=== PATIENT | male | born 1950 | race Caucasian/White ===

== ENCOUNTER 2017-06-11 16:55 | Emergency (ER) | payer OTHER ==
[~2017-06-11 16:55] MED LIST: PERCOCET 325 MG1 TA2 PO
--- NOTE | 2017-06-11 18:30 | ED ANKLE/FOOT INJURY COMPLAINT ---
History of Present Illness General Chief Complaint: Foot or Ankle Injury Stated Complaint: R ANKLE PAIN Source: patient Exam Limitations: no limitations Vital Signs & Intake/Output Vital Signs & Intake/Output Vital Signs Date Time Temp Pulse Resp B/P B/P Pulse O2 O2 Flow FiO2 Mean Ox Delivery Rate 06/11 185 98.4 56 20 146/78 95 Room Air 06/11 1851 99 Room Air 06/11 1708 98.6 66 20 138/83 97 Allergies Coded Allergies: NO KNOWN ALLERGIES (11/08/14) Reconcile Medications OXYCODONE HCL/ACETAMINOPHEN (Percocet 5-325 MG Tablet) 325 MG/5 MG TAB 1 TAB PO Q4-6 PRN PRN PAIN Triage Note: PER PT TWIATED RT ANKLE IN SNOW AT 1530 TODAY NO OTHER INJURIES Triage Nurses Notes Reviewed? yes Occurred: just prior to arrival Duration: hour(s):, constant, continues in ED Timing: recent history Method of Injury: twisted No Modifying Factors: none HPI: 67-year-old male comes into emergency room for further evaluation of right ankle pain. Patient twisted his right ankle while outside. Denies any head trauma. Denies any neck pain. Some swelling. Some associated pain. Patient able to ambulate. Denies any fever. Denies any other system symptoms. Past History Travel History Traveled to [place] past 21 day No Medical History Any Pertinent Medical History? see below for history Neurological: NONE EENT: NONE Cardiovascular: hypertension, hyperlipidemia Respiratory: NONE Gastrointestinal: NONE Hepatic: NONE Renal: KIDNEY STONE Musculoskeletal: NONE Psychiatric: NONE Endocrine: NONE Blood Disorders: NONE Cancer(s): NONE FINISHER HAND/Reproductive: NONE Pneumonia Vaccine: 03/31/08 Influenza Vaccine: 04/11/07 Surgical History Surgical History: hernia repair-inguinal, spinal fusion Psychosocial History Who do you live with Spouse Services at Home None What is your primary language Singaporean Tobacco Use: Never used Family History Hx Contributory? No Review of Systems Review of Systems Constitutional: Reports: no symptoms. EENTM: Reports: no symptoms. Respiratory: Reports: no symptoms. Cardiovascular: Reports: no symptoms. GI: Reports: no symptoms. Genitourinary: Reports: no symptoms. Musculoskeletal: Reports: see HPI. Skin: Reports: no symptoms. Neurological/Psychological: Reports: no symptoms. Hematologic/Endocrine: Reports: no symptoms. Immunologic/Allergic: Reports: no symptoms. All Other Systems: Reviewed and Negative Physical Exam Physical Exam General Appearance: well developed/nourished, mild distress Head: atraumatic Eyes: Bilateral: normal appearance. Ears, Nose, Throat: normal ENT inspection, hearing grossly normal Neck: normal inspection Cardiovascular/Respiratory: no respiratory distress Back: normal inspection Leg/Knee/Thigh Left: normal inspection Ankle Right: soft tissue tenderness, swelling, limited range of motion Foot Right: soft tissue tenderness, swelling Neuro/Vascular: normal motor function Tendon: normal tendon function Psychiatric: awake, alert, oriented x 3 Skin: intact, normal color, warm/dry Progress Differential Diagnosis: septic arthritis, fracture, dislocation, sprain, contusion Plan of Care: Orders Procedure Date/time Status XRY-FOOT COMPLETE, RIGHT 06/11 1703 Active XRY-ANKLE 3 OR MORE VIEWS R 06/11 1703 Active Diagnostic Imaging: Viewed by Me: Radiology Read. Discussed w/RAD: Radiology Read. Radiology Impression: PATIENT: SALTY GALLEGO PRESENT AGE: 67 PATIENT ACCOUNT NO: [id number] : 49 LOCATION: [facility] ORDERING PHYSICIAN: Marcial BLEDSOE SERVICE DATE: 06/11/17 EXAM TYPE: RAD - XRY- ANKLE 3 OR MORE VIEWS R; XRY-FOOT COMPLETE, R EXAMINATION: RIGHT ANKLE AND RIGHT FOOT RADIOGRAPHS. CLINICAL INFORMATION: Question fracture. Right foot and ankle pain. COMPARISON: No relevant prior imaging. TECHNIQUE: 3 views of the right ankle were obtained and 3 views of the right foot were obtained. FINDINGS: There is no acute fracture or dislocation. Joint spaces are maintained. There is no joint effusion. There is exuberant bone arising from the medial margin of a cornuate navicular. Mild plantar calcaneal spurring. Extensive relatively diffuse subcutaneous soft tissue swelling. IMPRESSION: There is extensive relatively diffuse subcutaneous soft tissue swelling suggesting the possibility of edema or venous stasis. No evidence of acute fracture or dislocation. Of note there is exuberant bone arising from the medial margin of a cornuate navicular and mild plantar calcaneal spurring. DICTATED BY: Abdelrahman Vu MD DATE/ TIME DICTATED:06/11/171830 WOOD TURNER:NONA DATE/TIME TRANSCRIBED: 06/11/171830 CONFIDENTIAL, DO NOT COPY WITHOUT APPROPRIATE AUTHORIZATION. < Electronically signed in Other Vendor System> SIGNED BY: Mirella WINTERSAbdelrahman PatelMary Ellen 06/11/17 [id number] Departure Departure Disposition: HOME OR SELF CARE Condition: Stable Clinical Impression Primary Impression: Right ankle sprain Referrals: Jayesh WINTERS,Minor Powell MD,[place] (PCP/Family) Additional Instructions: Ice. Rest. Motrin for pain. Elevation. Follow-up with orthopedic doctor provided if not better in 3-5 days. If symptoms do not improve you'll require further evaluation with possible repeat x-rays as well as evaluation by food service specialist. Sprains can last anywhere from days to weeks. No high impact running or jumping if you have an ankle sprain or any type of lower extremity sprain. Return to normal activity only after symptoms have resolved. Please go over all results of today's visit with your primary care doctor. Contact your primary care doctor to let them know you were here in the emergency room. There may be nonspecific findings which may not be related to your visit today here in the emergency room but may require further evaluation and chronic monitoring by your primary care doctor. If you had a laceration today the chance of foreign body always remains. You should follow-up with your primary care doctor for recheck in 3-5 days for a wound check. If you had an x-ray done there is a chance that a fracture could have been missed on initial read and you should follow-up with your primary care doctor for repeat x-rays if symptoms persist. If your blood pressure was elevated here in the emergency room please have rechecked by [facility] primary care doctor within the next 48. If you were prescribed a narcotic here in the emergency room or any type of controlled substances you're not allowed to drive while taking this medication or operate any type of heavy machinery. Narcotics can make you feel lightheaded dizziness nausea and can cause constipation. You may need to pick up operator a stool softener. Thank you for choosing [facility] emergency room. Please return to the emergency room immediately if you have any other concerns worsening of symptoms. Departure Forms: Customer Survey General Discharge Information
--- NOTE | 2017-06-11 18:42 | RADIOLOGY REPORT ---
EXAMINATION: RIGHT ANKLE AND RIGHT FOOT RADIOGRAPHS. CLINICAL INFORMATION: Question fracture. Right foot and ankle pain. COMPARISON: No relevant prior imaging. TECHNIQUE: 3 views of the right ankle were obtained and 3 views of the right foot were obtained. FINDINGS: There is no acute fracture or dislocation. Joint spaces are maintained. There is no joint effusion. There is exuberant bone arising from the medial margin of a cornuate navicular. Mild plantar calcaneal spurring. Extensive relatively diffuse subcutaneous soft tissue swelling. IMPRESSION: There is extensive relatively diffuse subcutaneous soft tissue swelling suggesting the possibility of edema or venous stasis. No evidence of acute fracture or dislocation. Of note there is exuberant bone arising from the medial margin of a cornuate navicular and mild plantar calcaneal spurring.
[2017-06-11 18:55] VITALS: BP 146/78
[2017-06-18] MEDS ORDERED: PERIOGARD473 ML PO (22:03)
== END 2017-06-11 18:52 ==
LOC: ERH 16:55
DX: S93.401A Sprain of unspecified ligament of right ankle, initial encounter (principal); X50.9XXA Other and unspecified overexertion or strenuous movements or postures, initial encounter; Y93.9 Activity, unspecified; Y92.9 Unspecified place or not applicable
CPT/HCPCS: 73610-RT; 73630-RT